=== PATIENT | female | born 1965 | race Caucasian/White ===

== ENCOUNTER 2021-06-12 21:47 | Emergency (ER) | payer OTHER ==
[~2021-06-12] VITALS: Ht 167.6 cm; Wt 80.0 kg
[2021-06-12] MEDS ORDERED: LOSA50TA28 PO (21:54)
[2021-06-12] MEDS ORDERED: CRES10TA PO (21:54)
[2021-06-12] MEDS ORDERED: EPIP0.3I2 IM (22:00)
[2021-06-13 01:41] VITALS: BP 117/16
== END 2021-06-13 01:43 | disposition home or self-care (01) ==
LOC: M ED 21:47
DX: S50.11XA Contusion of right forearm, initial encounter (principal); W23.0XXA Caught, crushed, jammed, or pinched between moving objects, initial encounter; Y92.018 Other place in single-family (private) house as the place of occurrence of the external cause; I10 Essential (primary) hypertension; E78.5 Hyperlipidemia, unspecified; Z91.030 Bee allergy status; Z79.899 Other long term (current) drug therapy